=== PATIENT | female | born 1955 | race Caucasian/White ===

== ENCOUNTER 2017-02-23 13:15 | Observation (INO) | payer MEDICARE, OTHER ==
[2017-02-23] MEDS ORDERED: ONDANSETRON HCL/PF 4 MG/ 2ML VIAL IVP ONE (13:38)
[2017-02-23] MEDS ORDERED: 0.9 % SODIUM CHLORIDE 1,000 ML IV ONE (13:45)
[2017-02-23] MEDS ORDERED: 0.9 % SODIUM CHLORIDE 1,000 ML IV SCH (14:00)
--- NOTE | 2017-02-23 14:24 | ED Physician Documentation ---
Nausea/Vomiting/Diarrhea - HISTORIAN Historian: patient - HPI Stated Complaint: nausea and vomiting Chief Complaint: Nausea,Vomiting,Diarrhea Additional Information: x 1 week Onset: days ago (7) Duration: sudden-onset Last known Well Date: 02/16/17 Timing: sudden onset, still present Context: other (gandson with "stomach flu") Severity: moderate Further Comments: no - Associated Symptoms Vomiting: other (3-4x/day) Diarrhea: other (diarrhea first 3 days now moving bowels but formed) Abdominal Pain: cramping (first 3 days), mild, epigastric, other (no abd. pain for last 4 days) - ROS CONST: denies: fever, sweating CVS/RESP: denies: shortness of breath, cough, dry cough, non-productive cough GI/: other (denies hematemesis, melenotic stools or emesis). denies: constipation, black stools, bloody urine, bloody stools, dark urine, problems urinating EYES/ENT: none MS/SKIN/LYMPH: denies: joint pain, leg swelling, rash, swollen glands, ankle swelling NEURO/PSYCH: none - PAST HX Past History: other (hx of renal artery stenosis, hear murmur) Surgeries/Procedures: other (renal stenting) Immunizations: referred to PCP Allergies/Adverse Reactions: Allergies Allergy/AdvReac Type Severity Reaction Status Date / Time duloxetine HCl Allergy Verified 02/23/17 13:43 [From Cymbalta] Sulfa (Sulfonamide Allergy Verified 02/23/17 13:43 Antibiotics) Home Medications: Ambulatory Orders Medication Instructions Recorded Cyanocobalamin (Vitamin B-12) 2,000 mcg PO DAILY #60 u2 02/12/13 [B-12] Furosemide 20 mg PO DAILY PRN #90 u2 02/12/13 [place]-3 Fatty Acids/Fish Oil 1 each PO TID #90 av 02/12/13 [[place] 3 1,000 Mg Softgel] Potassium Chloride 10 meq PO DAILY u2 02/12/13 - SOCIAL HX Smoking History: cigarettes Alcohol Use: none Drug Use: none - FAMILY HX Family History: none - VITAL SIGNS Vital Signs: Vital Signs Temp Pulse Resp BP Pulse Ox 97.6 F 89 18 96/67 94 02/24/17 05:28 02/24/17 08:00 02/24/17 05:28 02/24/17 05:28 02/24/17 05:28 - REVIEWED ASSESSMENTS Nursing Assessment Reviewed: Yes Vitals Reviewed: Yes Progress - Results/Orders Results/Orders: cbc, cmp, ua, - Progress Progress: pt. given kcl 40 meq, 1 literr ns, 8 mg zofran, 12.5 mg phenergan and 1 vicodin 5/325 p.o. in er Critical Care Note - Critical Care Note Total Time (mins): 0 ED Results Lab/Radiology - Lab Results Lab Results: Lab Results 02/23/17 02/23/17 14:25 14:25 WBC 14.60 K/ul H K/ul (4.00-12.00) RBC 3.33 M/ul L M/ul (3.90-5.20) Hgb 12.4 g/dL g/dL (12.0-16.0) Hct 38.5 % % (34.5-46.5) MCV 115.7 fl H fl (80.0-100.0) MCH 37.2 pg H pg (28.0-34.0) MCHC 32.2 g/dL g/dL (30.0-36.0) RDW 18.6 % H % (11.3-14.3) Plt Count 253 K/mm3 K/mm3 (130-400) Neut % (Auto) 70.6 % % (39.0-79.0) Lymph % (Auto) 18.6 % % (16.0-50.0) [place] % (Auto) 8.1 % % (0.0-11.0) Eos % (Auto) 0.4 % % (0.0-6.8) Baso % (Auto) 0.4 (0.0-1.5) Neut # (Auto) 10.3 # k/uL H # k/uL (1.4-7.7) Lymph # (Auto) 2.7 # k/uL # k/uL (0.6-4.0) [place] # (Auto) 1.2 # k/uL H # k/uL (0.0-0.9) Eos # (Auto) 0.1 # k/uL # k/uL (0.0-0.6) Baso # (Auto) 0.0 # k/uL # k/uL (0.0-0.5) Reactive Lymphs % 1.9 % % (0.0-5.0) Reactive Lymphs # 0.3 # k/uL # k/uL (0.0-0.8) Sodium 135 mmol/L L mmol/L (137-145) Potassium 2.8 mmol/L L mmol/L (3.5-5.1) Chloride 101 mmol/L mmol/L (98-107) Carbon Dioxide 26 mmol/L mmol/L (22-30) BUN 26 mg/dL H mg/dL (7-17) Creatinine 0.80 mg/dL mg/dL (0.52-1.04) Estimated Creat Clear 108 Est GFR ( Amer) > 60 (60 - ) Est GFR (Non-Af Amer) > 60 (60 - ) Glucose 117 mg/dL H mg/dL (74-106) Calcium 8.7 mg/dL mg/dL (8.4-10.2) Total Bilirubin 0.8 mg/dL mg/dL (0.2-1.3) AST 14 U/L L U/L (15-46) ALT 14 U/L U/L (13-69) Alkaline Phosphatase 63 U/L U/L (38-126) Total Protein 7.2 g/dL g/dL (6.3-8.2) Albumin 4.1 g/dL g/dL (3.5-5.0) - Radiology Radiology Impressions: aas neg - Orders Orders: ED Orders Category Date Time Status Place IV Lock 1T Care 02/23/17 13:38 Completed AAS [ABD SERIES PA CHEST] [RAD] Stat Exams 02/23/17 Completed CBC/PLATELET/DIFF Routine Lab 02/23/17 14:25 Completed CMP Routine Lab 02/23/17 14:25 Completed 0.9 % Sodium Chloride [Normal Saline] 1,000 ml Med 02/23/17 14:00 Discontinued IV .Q1H 0.9 % Sodium Chloride [Sodium Chloride] 250 ml Med 02/23/17 14:52 Discontinued IV .STK-MED Aspirin Med 02/24/17 09:00 Ordered 325 mg PO DAILY HYDROcodone /APAP 10325 [[place] 10/325] Med 02/23/17 15:08 Discontinued 1 each PO NOW ONE Ondansetron HCl/Pf [Zofran 4 mg/2 ml] Med 02/23/17 13:38 Discontinued 8 mg IVP NOW ONE Potassium Chloride [Klor-Con M20] Med 02/23/17 14:51 Discontinued 40 meq .ROUTE .STK-MED ONE Potassium Chloride [Klor-Con M20] Med 02/23/17 14:51 Discontinued 40 meq PO NOW ONE Promethazine HCl [Phenergan] Med 02/23/17 14:51 Discontinued 25 mg .ROUTE .STK-MED ONE Promethazine HCl [Phenergan] 12.5 mg Med 02/23/17 14:50 Discontinued 0.9 % Sodium Chloride [Sodium Chloride] 250 ml IV NOW EKG WITH COMPARISON Urgent Ther 02/23/17 Stop Req Transfer Routine Transfer 02/23/17 Completed Nausea Physical Exam - EXAM General Appearance: alert, moderate distress EENT: eye inspection normal, ENT inspection normal, pharynx normal, DARIANA, no nystagmus, TM's nml, dry mucous membranes Neck: normal inspection, thyroid normal, supple Respiratory: no resp distress, chest non-tender, breath sounds normal CVS: reg rate & rhythm, heart sounds normal, equal pulses, no murmur, no gallop , PMI nml, no JVD Abdomen: non-tender, no organomegaly Back: non-tender, painless ROM Skin: warm/dry, normal color Extremities: non-tender, normal range of motion, no evidence of injury, no edema Neuro/Psych: oriented X3, CN's nml as tested, motor nml, sensation nml, mood/ affect nml, cognition normal Discharge Clincal Impression: Hypokalemia, Dehydration, Gastroenteritis Arrhythmia Qualifiers: Arrhythmia type: premature depolarization Premature depolarization type: ventricular Qualified Code(s): I49.3 - Ventricular premature depolarization Comments: Case discussed with Dr. Nguyen who accepts admission Condition: Stable Disposition: ADMITTED INPATIENT Decision to Admit: [id number] Decision Time: 17:15
[2017-02-23 14:30] LABS: BASOPHILS % 0.4 (0.0-1.5); EOSINOPHILS % 0.4 % (0.0-6.8); MEAN CORPUSCULAR HEMOGLOBIN 37.2 pg (28.0-34.0); MEAN CORPUSCULAR VOLUME 115.7 fl (80.0-100.0); MONOCYTES % 8.1 % (0.0-11.0); NEUTROPHILS # 10.3 # k/uL (1.4-7.7)
[2017-02-23 14:39] LABS: eGFR (African) > 60; eGFR (Non-African) > 60
[2017-02-23] MEDS ORDERED: PROMETHAZINE HCL IV ONE (14:50)
[2017-02-23] MEDS ORDERED: SODIUM CHLORIDE 0.9% IV ONE (14:50)
[2017-02-23] MEDS ORDERED: POTASSIUM CHLORIDE 20 MEQ TABLET.ER ONE (14:51)
[2017-02-23] MEDS ORDERED: PROMETHAZINE HCL 25 MG/ML VIAL ONE (14:51)
[2017-02-23] MEDS ORDERED: 0.9 % SODIUM CHLORIDE 250 ML IV ONE (14:52)
--- NOTE | 2017-02-23 15:05 | Diagnostic Imaging Report ---
KIKE MOORE [facility] [address] [facility] [address] Report Submission Date: Feb 23, 2017 2:17:59 PM CDT Patient Study Name: TEX MAGANA Date: Feb 23, 2017 1:41:58 PM CDT Modality Type: CR Gender: F Description: CHEST,ABDOMEN : 59 Institution: [facility] Physician: KIKE MOORE Examination: Obstruction series History: Vomiting Findings: 3 views obtained of the chest and abdomen. Single view the chest demonstrates normal cardiac silhouette. No focal infiltrative process and blunting of the costophrenic margins. No abnormal dilation of the large or small bowel. Air and stool throughout the large bowel. No suspicious calcification projecting over the renal fossa or the lower pelvic region. Osseous structures demonstrate lumbar degenerative changes and curvature to the left. Impression: No acute cardiopulmonary process. No obstruction. No suspicious calcifications by plain film sensitivity. Electronically signed on Feb 23, 2017 2:17:59 PM CDT by: Norbert BONILLA
[2017-02-23] MEDS ORDERED: HYDROcodone /APAP 10/325 1 EACH TABLET PO ONE (15:08)
[2017-02-23] MEDS: POTASSIUM CHLORIDE 20 MEQ TABLET.ER PO ONE ×2 (15:14→18:26)
[2017-02-23] MEDS ORDERED: POTASSIUM CHLORIDE 20 MEQ/NS 1,000 ML IV ONE (17:18)
[2017-02-23] MEDS: POTASSIUM CHLORIDE 20 MEQ/NS 1,000 ML IV SCH (17:30)
--- NOTE | 2017-02-23 17:36 | History and Physical Report ---
History of Present Illnes - History of Present Illness Reason for Visit: dehydration, hypokalemia History of Present Illness: [id number] white female who presented to the ED complaining of a seven day history of viral gastroenteritis type symptoms. Patient had been having some diarrhea and abdominal cramping associated with some nausea vomiting. Patient states she is been having a low-grade fever but no chills. Over the last several days the nausea vomiting and abdominal cramping seem to have improved that the patient states she was feeling worse. Patient subsequently came to the ED for evaluation. In ED patient was found to be dehydrated with some hypokalemia. Patient was subsequently admitted to the hospital for further care and evaluation and treatment of her hypokalemia. - Past Medical History Cardiac: HTN, Other (PVD) Pulmonary: Other (tobacco dependency) CIPHER EXPERT: CVA, TIA Heme/Onc: Anemia NOS, Other (Chronic myeloproliferative disorder,) - Past Surgical History Past Surgical History: Other (stenting of the L femoral artery) - Past Family History Mother Family History: DM, Father Family History: CAD, - Past Social History Smoke: # pack years (40), <1 pack per day (05/18 ppd) Alcohol: None Drugs: None Lives: With Family Domestic Violence: Negative - Health Maintenance Health Maintenance: Cholesterol, Influenza Vaccine, Pneumococcal Vaccine, Mammogram, Colonoscopy Influenza Vaccine: No Pneumonia Vaccine: Yes Resuscitation Status: Resusciation Status Resuscitation Status Full Code - Unable to Obtain History Unable to Obtain: No Review of Systems - Review of Systems Constitutional: Weakness. negative: Fever, Chills Eyes: negative: pain, vision change, conjunctivae inflammation ENT: negative: Ear Pain, Ear Discharge, Nose Pain, Nose Congestion, Mouth Pain, Mouth Swelling, Throat Pain, Throat Swelling Respiratory: SOB with Excertion (mild). negative: Cough, Shortness of Breath, Hemoptysis, Pleuritic Pain, Wheezing Cardiovascular: Light Headedness. negative: Chest Pain, Palpitations, Orthopnea , Paroxysmal Noc. Dyspnea, Edema Gastrointestinal: negative: Nausea, Vomiting, Abdominal Pain, Diarrhea, Constipation, Melena, Hematochezia Genitourinary: negative: Dysuria, Frequency, Incontinence Musculoskeletal: Neck Pain, Shoulder Pain, Arm Pain, Back Pain. negative: Leg Pain Skin: negative: Rash Neurological: Weakness. negative: Numbness, Incoordination, Change in Speech, Confusion, Seizures - Medications/Allergies Allergies/Adverse Reactions: Allergies Allergy/AdvReac Type Severity Reaction Status Date / Time duloxetine HCl Allergy Verified 02/23/17 13:43 [From Cymbalta] Sulfa (Sulfonamide Allergy Verified 02/23/17 13:43 Antibiotics) Current Inpatient Medications: Current Inpatient Medications Aspirin (Aspirin) 325 mg PO DAILY [facility] Buspirone HCl (Buspar) 10 mg PO BID [facility] Cyanocobalamin (Vitamin B-12) 2,000 mcg PO DAILY [facility] Fluoxetine HCl (Prozac) 40 mg PO DAILY [facility]ITH Gabapentin (Neurontin) 600 mg PO TID [facility] Potassium Chloride/Sodium Chloride (Potassium 20 Meq/Ns 1000 Ml) 1,000 mls @ 100 mls/hr IV Q10H [facility] Oxycodone/Acetaminophen (Percocet 5-325 Mg Tablet) 1 each PO Q4 [facility]ITH Potassium Chloride (Klor-Con 10) 20 meq PO BID [facility] Trazodone HCl (Desyrel) 50 mg PO HS LAITH Venlafaxine HCl (Effexor) 75 mg PO BID [facility]ITH Exam - Exam Vital Signs: Vital Signs (72 hours) 02/23/17 17:18 Pulse Rate [ 86 Pulse ox] Respiratory 20 Rate Blood Pressure 80/57 [Left Arm] General: Alert, Oriented to Person, Oriented to Place, Oriented to Time, Cooperative, Mild distress HEENT: Atraumatic, PERRLA, Nose Mucous membr. moist/[place], Edentulous, Hearing Grossly Normal. No: Mouth Mucous membr. moist/[place] (dry) Neck: Stridor, Rigidity, Normal Range of Motion. No: Lymphadenopathy Carotids: WNL Thyroid: WNL Lungs: Clear to auscultation, Normal air movement, Speaks full Sentences, Respiratory Distress. No: Wheezes, Rales, Rhonchi Cardiovascular: Regular rate, Normal S1, Normal S2, No murmurs. No: Gallops Abdomen: Normal bowel sounds, Soft, Other (tenderness over the ). No: Distended , Rigid Integumentary: Normal, [place], Warm, Dry Extremities: No clubbing, No cyanosis, Other (plus one edema- at baseline) Neurological: Normal gait, Normal speech, Strength Equal Bilat, Normal tone Psych/Mental Status: Mental status NL, Mood NL, Appropriate Affect, Intact Judgment Assessment/Plan - Assessment/Plan (1) Gastroenteritis Status: Acute Assessment: Clear liquids, IV fluids, Zofran PRN (2) Dehydration Status: Acute Assessment: IV fluids and recheck BMP in the AM (3) Hypokalemia Status: Acute Assessment: Supplemental K, recheck in AM, no EKG changes (4) PVD (peripheral vascular disease) Status: Acute Assessment: stable, will continue home meds (5) Neuropathy Status: Acute Assessment: stable, will continue home meds VTE Assessment - RISK FACTOR SCORE VTE RISK FACTOR SCORES: AGE OVER 60 YEARS, ANTICIPATED BED CONFINEMENT OR IMMOBILIZATION > 24 HOURS - RISK VTE MODERATE RISK: SCORE OF 2 (RISK PROXIMAL DVT 2-4%) PROPHYAXIS NEEDED
[2017-02-23] MEDS: BUSPIRONE HCL 5 MG TABLET PO SCH ×2 (17:46→21:17)
[2017-02-23] MEDS: traZODone HCL 50 MG TABLET PO SCH ×2 (17:47→21:18)
[2017-02-23] MEDS: GABAPENTIN 300 MG CAPSULE PO SCH ×2 (17:47→18:41)
[2017-02-23] MEDS ORDERED: 0.9 % SODIUM CHLORIDE 1,000 ML with POTASSIUM CHLORIDE 40 MEQ IV SCH ×2 (18:00)
[2017-02-23] MEDS ORDERED: ENOXAPARIN SODIUM 30 MG/0.3 ML DISP.SYRIN SQ SCH (18:00)
[2017-02-23] MEDS ORDERED: PANTOPRAZOLE SODIUM 40 MG in 0.9 % SODIUM CHLORIDE 50 ML IV SCH (18:00)
[2017-02-23] MEDS ORDERED: oxyCODONE/ACETAMINOPHEN 5/325 TABLET PO ONE ×2 (18:22→21:15)
[2017-02-23] MEDS: oxyCODONE/ACETAMINOPHEN 5/325 TABLET PO SCH ×2 (18:26→21:19)
[2017-02-23 18:36] VITALS: BMI 22.3
[2017-02-23] MEDS ORDERED: VENLAFAXINE HCL 37.5 MG CAP.ER.24H PO ONE (18:37)
[2017-02-23] MEDS ORDERED: ENOXAPARIN SODIUM 30 MG/0.3 ML DISP.SYRIN SQ ONE (18:37)
[2017-02-23] MEDS ORDERED: BUSPIRONE HCL 5 MG TABLET PO ONE (18:37)
[2017-02-23] MEDS ORDERED: GABAPENTIN 300 MG CAPSULE ONE (18:38)
[2017-02-23] MEDS ORDERED: traZODone HCL 50 MG TABLET ONE (18:38)
[2017-02-23] MEDS: POTASSIUM CHLORIDE 10 MEQ TABLET.ER PO SCH ×2 (19:14→21:24)
[2017-02-23] MEDS ORDERED: SALINE FLUSH 10 ML DISP.SYRIN IVF ONE (19:46)
[2017-02-23] MEDS ORDERED: 0.9 % SODIUM CHLORIDE 50 ML IV ONE (19:46)
[2017-02-23] MEDS ORDERED: PANTOPRAZOLE SODIUM INJ. 40 MG VIAL ONE (19:54)
[2017-02-23] MEDS: VENLAFAXINE HCL 37.5 MG TAB PO SCH (21:19)
[2017-02-23] MEDS ORDERED: POTASSIUM CHLORIDE 10 MEQ TABLET.ER PO ONE (21:24)
[2017-02-24] MEDS ORDERED: oxyCODONE/ACETAMINOPHEN 5/325 TABLET PO ONE ×3 (01:42→08:43)
[2017-02-24] MEDS: oxyCODONE/ACETAMINOPHEN 5/325 TABLET PO SCH ×3 (01:43→08:51)
[2017-02-24] MEDS ORDERED: POTASSIUM CHLORIDE 20 MEQ/NS 1,000 ML IV ONE (03:21)
[2017-02-24] MEDS: POTASSIUM CHLORIDE 20 MEQ/NS 1,000 ML IV SCH (03:27)
[2017-02-24] MEDS ORDERED: POTASSIUM CHLORIDE 10 MEQ TABLET.ER PO ONE (05:34)
[2017-02-24] MEDS ORDERED: ASPIRIN 325 MG TABLET ONE (05:34)
[2017-02-24] MEDS ORDERED: CYANOCOBALAMIN 1,000 MCG TABLET PO ONE (05:34)
[2017-02-24] MEDS ORDERED: VENLAFAXINE HCL 37.5 MG CAP.ER.24H PO ONE (05:34)
[2017-02-24] MEDS ORDERED: BUSPIRONE HCL 5 MG TABLET PO ONE (05:34)
[2017-02-24] MEDS ORDERED: GABAPENTIN 300 MG CAPSULE ONE (05:35)
[2017-02-24] MEDS ORDERED: FLUoxetine HCL 10 MG CAPSULE PO ONE (05:35)
[2017-02-24] MEDS: BUSPIRONE HCL 5 MG TABLET PO SCH (08:52)
[2017-02-24] MEDS: GABAPENTIN 300 MG CAPSULE PO SCH (08:53)
[2017-02-24] MEDS: VENLAFAXINE HCL 37.5 MG TAB PO SCH (08:53)
[2017-02-24] MEDS: POTASSIUM CHLORIDE 10 MEQ TABLET.ER PO SCH (08:53)
[2017-02-24] MEDS ORDERED: ASPIRIN 325 MG TABLET PO SCH (09:00)
[2017-02-24] MEDS ORDERED: FLUoxetine HCL 10 MG CAPSULE PO SCH (09:00)
[2017-02-24] MEDS ORDERED: CYANOCOBALAMIN 1,000 MCG TABLET PO SCH (09:00)
[2017-02-24 09:49] LABS: BASOPHILS % 0.5 (0.0-1.5); EOSINOPHILS % 2.7 % (0.0-6.8); MEAN CORPUSCULAR HEMOGLOBIN 36.9 pg (28.0-34.0); MEAN CORPUSCULAR VOLUME 117.3 fl (80.0-100.0); NEUTROPHILS # 6.7 # k/uL (1.4-7.7)
[2017-02-24 10:15] LABS: eGFR (African) > 60; eGFR (Non-African) > 60
[2017-02-24 11:02] VITALS: BP 84/58
--- NOTE | 2017-03-04 11:37 | Discharge Summary ---
Discharge Summary - Discharge Sumary History of Present Illness: Fabia-ffel-jur white female who presented to the ED complaining of a seven day history of viral gastroenteritis type symptoms. Patient had been having some diarrhea and abdominal cramping associated with some nausea vomiting. Patient states she is been having a low-grade fever but no chills. Over the last several days the nausea vomiting and abdominal cramping seem to have improved that the patient states she was feeling worse. Patient subsequently came to the ED for evaluation. In ED patient was found to be dehydrated with some hypokalemia. Patient was subsequently admitted to the hospital for further care and evaluation and treatment of her hypokalemia. Condition at Discharge: Stable Home Medications: Ambulatory Orders Medication Instructions Recorded Cyanocobalamin (Vitamin B-12) 2,000 mcg PO DAILY #60 u2 02/12/13 [B-12] Furosemide 20 mg PO DAILY PRN #90 u2 02/12/13 [place]-3 Fatty Acids/Fish Oil 1 each PO TID #90 av 02/12/13 [[place] 3 1,000 mg Softgel] Potassium Chloride 10 meq PO DAILY u2 02/12/13 Consultations this Visit: None Procedures this Visit: None Allergies/Adverse Reactions: Allergies Allergy/AdvReac Type Severity Reaction Status Date / Time duloxetine HCl Allergy Verified 02/23/17 13:43 [From Cymbalta] Sulfa (Sulfonamide Allergy Verified 02/23/17 13:43 Antibiotics) Discharge Summary: Patient was started on IV fluids with supplemental potassium. Once patient started to tolerate oral intake better she was started on po potassium supplement also. She tolerated this well. Potassium was rechecked and was found to be improved to 4.0. BUN improved from 26 to 18 and creatinine remained stable. Patient did not have any further vomiting once admitted. Cardiac status was monitored and frequency of PVCs decreased. At the time of dismissal patient was doing much better. She was tolerating oral food/fluids well. She was discharged in stable condition.
== END 2017-02-24 11:20 | disposition home or self-care (01) ==
LOC: ED 13:15 → SOUTH 16:55 → INTOOBSV 16:55 → UNDOADMIN 16:55
PROVIDERS: ADMIT Family Medicine; ATTEND Family Medicine
DX: E87.6 Hypokalemia (principal); E86.0 Dehydration
CPT/HCPCS: 36415; 74022; 80053; 85025; 93005; A9270; G0378; J1650; J2405; J2550; J3480; J7030; J7050; 96361; 96374; 96375; 96376; 99283; 99284; S1016

== ENCOUNTER 2017-04-11 12:58 | Outpatient (CLI) | payer MEDICARE, OTHER | END 2017-04-11 13:00 | LOC: CARD 12:58 | PROVIDERS: ATTEND Internal Medicine Cardiovascular Disease | DX: R07.9 Chest pain, unspecified (principal); I35.0 Nonrheumatic aortic (valve) stenosis; I73.9 Peripheral vascular disease, unspecified; I25.10 Atherosclerotic heart disease of native coronary artery without angina pectoris; Z86.73 Personal history of transient ischemic attack (TIA), and cerebral infarction without residual deficits; R01.1 Cardiac murmur, unspecified; I10 Essential (primary) hypertension; E78.5 Hyperlipidemia, unspecified; Z72.0 Tobacco use | CPT/HCPCS: G0463 ==

== ENCOUNTER 2017-05-28 17:56 | Emergency (ER) | payer MEDICARE, OTHER ==
--- NOTE | 2017-05-28 18:02 | ED Physician Documentation ---
General Adult - HISTORIAN Historian: patient - HPI Stated Complaint: nasuea vomiting diarrhea - stated gallstones Chief Complaint: Nausea,Vomiting,Diarrhea Onset: other (7) Timing: still present, worse Severity: moderate Further Comments: yes (She states almost two months ago she was here for the same symptoms and she was admitted and she was dx with gallstones. She has been seeing a specialist and has some mild symptoms on and off. She states about one week ago she started with N/V/D and the symptoms are progressively increasing with pain. She thinks her next specialist appt is early Jun. She denies a fever. ) Last known Well Code/Unknown Code: Unknown - ROS CONST: no problems CVS/RESP: denies: shortness of breath GI/: abdominal pain, vomiting, nausea MS/SKIN/LYMPH: none NEURO/PSYCH: denies: headache - PAST HX Past History: other (Vascular disease neuropathy ) Other History: none Surgeries/Procedures: other (Stent in left leg ) Immunizations: UTD Allergies/Adverse Reactions: Allergies Allergy/AdvReac Type Severity Reaction Status Date / Time Sulfa (Sulfonamide Allergy Severe Anaphylaxis Verified 05/28/17 18:42 Antibiotics) duloxetine HCl Allergy Verified 05/28/17 18:42 [From Cymbalta] Home Medications: Ambulatory Orders Medication Instructions Recorded Cyanocobalamin (Vitamin B-12) 2,000 mcg PO DAILY #60 u2 02/12/13 [B-12] Furosemide 20 mg PO DAILY PRN #90 u2 02/12/13 [place]-3 Fatty Acids/Fish Oil 1 each PO TID #90 av 02/12/13 [[place] 3 1,000 mg Softgel] Potassium Chloride 10 meq PO DAILY u2 02/12/13 - SOCIAL HX Smoking History: cigarettes Alcohol Use: none Drug Use: none - FAMILY HX Family History: No - VITAL SIGNS Vital Signs: Vital Signs Temp Pulse Resp BP Pulse Ox 84/58 02/24/17 10:00 - REVIEWED ASSESSMENTS Nursing Assessment Reviewed: Yes Vitals Reviewed: Yes Progress - Progress Progress: 1904: Nausea is improved and pain is slightly better. DG 2039: mild nausea no pain DG ED Results Lab/Radiology - Radiology Radiology Impressions: CT abdomen and pelvis without contrast History: Abdominal pain, nausea, vomiting, diarrhea Technique: Images through abdomen and pelvis were obtained without contrast. Findings: The lung bases, liver, gallbladder, pancreas, kidneys and right adrenal gland are grossly normal on this noncontrast examination. There is mild left adrenal enlargement. Spleen is absent. There is no hydronephrosis, hydroureter or renal calculus. No free air or fluid is present. There is no bowel obstruction. There are a few colonic diverticula. The appendix is not identified with confidence. There is calcification in the abdominal aorta and its branches. Impression: No acute abnormality. Aortic atherosclerosis. Electronically signed on May 28, 2017 7:17:54 PM CLIMATE CHANGE ANALYST by: Law Mora General Adult Physical Exam - PHYSICAL EXAM GENERAL APPEARANCE: mild distress EENT: eye inspection normal NECK: normal inspection RESPIRATORY: no resp distress, chest non-tender, breath sounds normal CVS: equal pulses, no murmur, other (irregular ) ABDOMEN: soft, tenderness (entire abdomen . more on RUQ ), abnormal bowel sounds (hypoactive ), guarding SKIN: warm/dry, normal color EXTREMITIES: non-tender, normal range of motion, no evidence of injury, no edema NEURO: oriented X3, CN's nml as tested, motor nml, sensation nml, mood/affect nml Discharge Clincal Impression: Nausea & vomiting Qualifiers: Vomiting type: unspecified Vomiting Intractability: unspecified Qualified Code( s): R11.2 - Nausea with vomiting, unspecified Referrals: Toni Nguyen MD [Primary Care Provider] - 2 Days Comments: zofran as needed for nausea Follow up with PCP return for any concern in symptoms \ Fluids [place] diet as tolerated. DG Condition: Stable Disposition: 01 HOME, SELF-CARE Decision to Admit: NO Date of Decison to Admit: 05/28/17 Decision Time: 20:41
[2017-05-28] MEDS ORDERED: ONDANSETRON HCL/PF 4 MG/ 2ML VIAL IVP ONE (18:17)
[2017-05-28] MEDS ORDERED: fentaNYL CITRATE/PF 100 MCG/ 2ML AMP IVP ONE (18:17)
[2017-05-28] MEDS ORDERED: 0.9 % SODIUM CHLORIDE 1,000 ML IV ONE (18:18)
[2017-05-28 18:46] LABS: BASOPHILS % 0.4 (0.0-1.5); EOSINOPHILS % 2.7 % (0.0-6.8); MEAN CORPUSCULAR HEMOGLOBIN 34.1 pg (28.0-34.0); MEAN CORPUSCULAR VOLUME 106.3 fl (80.0-100.0); MONOCYTES % 6.8 % (0.0-11.0); NEUTROPHILS # 5.5 # k/uL (1.4-7.7)
[2017-05-28 19:05] LABS: eGFR (African) > 60; eGFR (Non-African) > 60
--- NOTE | 2017-05-28 19:20 | Diagnostic Imaging Report ---
[facility] [address] [facility] [address] [place], [place]. [address] Report Submission Date: May 28, 2017 7:17:54 PM ART COORDINATOR Patient Study Name: TEX MAGANA Date: May 28, 2017 6:52:08 PM ART COORDINATOR Modality Type: CT\SR Gender: F Description: CT ABD & PELVIS W/O CO : 59 Institution: [facility] Physician: ROSENDA LEON CT abdomen and pelvis without contrast History: Abdominal pain, nausea, vomiting, diarrhea Technique: Images through abdomen and pelvis were obtained without contrast. Findings: The lung bases, liver, gallbladder, pancreas, kidneys and right adrenal gland are grossly normal on this noncontrast examination. There is mild left adrenal enlargement. Spleen is absent. There is no hydronephrosis, hydroureter or renal calculus. No free air or fluid is present. There is no bowel obstruction. There are a few colonic diverticula. The appendix is not identified with confidence. There is calcification in the abdominal aorta and its branches. Impression: No acute abnormality. Aortic atherosclerosis. Electronically signed on May 28, 2017 7:17:54 PM ART COORDINATOR by: Law BONILLA
[2017-05-28] MEDS ORDERED: ONDANSETRON HCL 4 MG TAB.RAPDIS PO ONE (20:42)
[2017-05-28 22:36] VITALS: BP 151/93
[2017-05-29 07:04] LABS: APPEARANCE,URINE CLEAR (CLEAR); COLOR,URINE YELLOW (YELLOW)
[2017-05-29 07:05] LABS: OCCULT BLOOD,URINE NEGATIVE (NEGATIVE); UROBILINOGEN URINE 0.2 Eu (0.2-1.0)
== END 2017-05-28 21:03 | disposition home or self-care (01) ==
LOC: ED 17:56
DX: R11.2 Nausea with vomiting, unspecified (principal)
CPT/HCPCS: 74176; 80053; 81002; 85025; 96365; 96375; 99283; J2405; J3010; J7030; S1016

== ENCOUNTER 2017-10-09 16:24 | Observation (INO) | payer MEDICARE, OTHER ==
[2017-10-09] MEDS ORDERED: 0.9 % SODIUM CHLORIDE 1,000 ML IV ONE ×2 (16:53→16:54)
[2017-10-09] MEDS ORDERED: NITROGLYCERIN 0.4 MG TAB.SUBL SL ONE ×3 (16:53→17:08)
--- NOTE | 2017-10-09 16:57 | ED Physician Documentation ---
Chest Pain - HISTORIAN Historian: patient - HPI Chief Complaint: Chest Pain Timing: worse Duration: other (intermittent) Last known Well Date: 10/09/17 Last Known Well Time: 12:00 Context: other (walking at [employer]) Severity: moderate Quality: sharp Chest Pain Radiation: shoulders (left) Chest Pain Signs/Symptoms: nausea, dyspnea. denies: vomiting Worsened By: nothing Relieved By: nothing Further Comments: yes (62 year female patient presents with complaint of intermittent chest pain since 1400. Patient states she was walking around at [employer] when she began having CP. Reports radiation to left shoulder, dyspnea and nausea. Rates CP 11/21 at presents.) - ROS CONST: recent illness (States she had a CT of head, chest and abdomen last at [facility]. Does not know results. ) MS/LYMPH: ankle swelling ("I always have that") GI/: nausea. 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; ) Allergies/Adverse Reactions: Allergies Allergy/AdvReac Type Severity Reaction Status Date / Time Sulfa (Sulfonamide Allergy Severe Anaphylaxis Verified 10/09/17 16:44 Antibiotics) duloxetine HCl Allergy Verified 10/09/17 16:44 [From Cymbalta] Home Medications: Ambulatory Orders Medication Instructions Recorded Cyanocobalamin (Vitamin B-12) 2,000 mcg PO DAILY #60 u2 02/12/13 [B-12] Furosemide 20 mg PO DAILY PRN #90 u2 02/12/13 [place]-3 Fatty Acids/Fish Oil 1 each PO TID #90 av 02/12/13 [[place] 3 1,000 mg Softgel] Potassium Chloride 10 meq PO DAILY u2 02/12/13 - SOCIAL HX Smoking History: cigarettes - FAMILY HX Family HX: CAD over 55 (father) - VITAL SIGNS Vital Signs: Vital Signs Temp Pulse Resp BP Pulse Ox 83 151/93 94 10/09/17 16:50 05/28/17 22:32 10/09/17 16:50 - REVIEWED ASSESSMENTS Nursing Assessment Reviewed: Yes Vitals Reviewed: Yes Progress - Progress Progress: Chest down to 2/10 after 1 Nitro. K 3.6 - will give additional Potassium due to ectopy. Patient requesting pain medication for neuropathy pain. 1730 Discussed treatment options and plan of care with patient and . Offered admission for rule out or transfer to cardiology. Patient and prefer admit to [facility]. Explained we would transfer to if next troponin was positive or chest pain continues. Verbalized understanding. Call to Timmy Liriano - agrees to observation admission. - EKG/XRAY/CT EKG: rhythm (SR, rate 84, multi-focal PVC. ) ED Results Lab/Radiology - Radiology Radiology Impressions: Examination: Portable chest History: Evaluate lungs. PCXR, CHEST PAIN THIS AFTERNOON (Hx) Comparison exam: None available for direct review. Findings: Single view of the chest demonstrates a normal cardiac and mediastinal silhouette. Diffuse interstitial prominence. No blunting of the costophrenic margins. Osseous structures are appropriate for age. Impression: Interstitial prominence suggesting a component of increased volume status. No effusion. Electronically signed on October 09, 2017 5:23:20 PM CDT by: Norbert Colin - Orders Orders: ED Orders Category Date Time Status Continuous EKG monitoring Q30M Care 10/09/17 16:50 Ordered Continuous Pulse Oximetry Q30M Care 10/09/17 16:50 Ordered CBC/PLATELET/DIFF Stat Lab 10/09/17 16:49 Ordered CMP Stat Lab 10/09/17 16:50 Ordered TROPONIN I (cTnI) Stat Lab 10/09/17 16:50 Ordered UA W/MICRO IF INDICATED Stat Lab 10/09/17 16:50 Ordered 0.9 % Sodium Chloride [Normal Saline] 1,000 ml Med 10/09/17 16:53 Ordered IV NOW Nitroglycerin [Nitroquick] Med 10/09/17 16:53 Once 0.4 mg SL NOW ONE Oxygen Daily Oxygen 10/09/17 17:00 Ordered EKG WITH COMPARISON Stat Ther 10/09/17 16:51 Ordered Chest Pain Physical Exam - EXAM General Appearance: mild distress EENT: eye inspection normal, ENT inspection normal, pharynx normal, no signs of dehydration, DARIANA, no nystagmus, TM's nml Respiratory: no resp. distress, nml breath sounds CVS: reg. 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
[2017-10-09 17:01] LABS: BASOPHILS % 0.3 (0.0-1.5); EOSINOPHILS % 2.4 % (0.0-6.8); MEAN CORPUSCULAR HEMOGLOBIN 31.9 pg (28.0-34.0); MEAN CORPUSCULAR VOLUME 104.1 fl (80.0-100.0); MONOCYTES % 6.4 % (0.0-11.0); NEUTROPHILS # 4.7 # k/uL (1.4-7.7)
[2017-10-09] MEDS ORDERED: ASPIRIN 81 MG CHEW TAB PO ONE (17:07)
[2017-10-09] MEDS ORDERED: ASPIRIN 81 MG CHEW TAB ONE (17:08)
[2017-10-09 17:09] LABS: eGFR (African) > 60; eGFR (Non-African) > 60
[2017-10-09] MEDS ORDERED: POTASSIUM CHLORIDE 20 MEQ TABLET.ER PO ONE (17:10)
[2017-10-09] MEDS ORDERED: MAGNESIUM SULFATE 2 GM in DEXTROSE 5 % IN WATER 100 ML IV STA ×2 (17:37)
[2017-10-09] MEDS ORDERED: MAGNESIUM SULFATE/D5W 100 ML IV ONE (17:38)
[2017-10-09] MEDS: BUSPIRONE HCL 5 MG TABLET PO SCH ×2 (19:00→20:36)
[2017-10-09] MEDS: APIXABAN 2.5 MG TABLET PO SCH ×2 (19:01→20:37)
[2017-10-09] MEDS: VARENICLINE TARTRATE 1 MG PO SCH (19:02)
[2017-10-09] MEDS: oxyCODONE/ACETAMINOPHEN 5/325 TABLET PO PRN (19:12)
[2017-10-09] MEDS: CILOSTAZOL 100 MG PO SCH (20:05)
[2017-10-09] MEDS ORDERED: VENLAFAXINE HCL 37.5 MG CAP.ER.24H PO ONE (20:30)
[2017-10-09] MEDS: VENLAFAXINE HCL 37.5 MG TAB PO SCH (20:36)
[2017-10-09] MEDS: traZODone HCL 50 MG TABLET PO SCH ×2 (20:36→20:41)
[2017-10-09 20:37] VITALS: BMI 21.9
[2017-10-09] MEDS: GABAPENTIN 300 MG CAPSULE PO SCH (20:37)
[2017-10-09] MEDS ORDERED: TRAZODONE HCL 150 MG PO SCH (21:00)
[2017-10-09] MEDS ORDERED: GABAPENTIN 600 MG PO SCH (21:00)
[2017-10-10] MEDS: oxyCODONE/ACETAMINOPHEN 5/325 TABLET PO PRN ×2 (01:27→07:36)
[2017-10-10] MEDS ORDERED: VENLAFAXINE HCL 37.5 MG CAP.ER.24H PO ONE (01:31)
--- NOTE | 2017-10-10 06:11 | Diagnostic Imaging Report ---
ABBEY LEGER (EMPLOYMENT SPECIALIST) - ER [facility] [address] [address] Report Submission Date: October 09, 2017 5:23:20 PM CDT Patient Study Name: TEX MAGANA Date: October 09, 2017 5:02:06 PM CDT Modality Type: DX Gender: F Description: CHEST : 59 Institution: [facility] Physician: ABBEY LEGER (EMPLOYMENT SPECIALIST) - ER Examination: Portable chest History: Evaluate lungs. PCXR, CHEST PAIN THIS AFTERNOON (Hx) Comparison exam: None available for direct review. Findings: Single view of the chest demonstrates a normal cardiac and mediastinal silhouette. Diffuse interstitial prominence. No blunting of the costophrenic margins. Osseous structures are appropriate for age. Impression: Interstitial prominence suggesting a component of increased volume status. No effusion. Electronically signed on October 09, 2017 5:23:20 PM CDT by: Norbert BONILLA
[2017-10-10 06:25] LABS: eGFR (African) > 60; eGFR (Non-African) > 60
[2017-10-10 07:34] LABS: APPEARANCE,URINE CLEAR (CLEAR); COLOR,URINE YELLOW (YELLOW); OCCULT BLOOD,URINE NEGATIVE (NEGATIVE); UROBILINOGEN URINE 0.2 Eu (0.2-1.0)
--- NOTE | 2017-10-10 08:07 | Inpatient Progress Note ---
Subjective - Required Recertification Statement I anticipate X number of days because-include discharge plan: 1 - Review of Systems Events since last encounter: Christin states her chest pain is better today. She notes still having pain occasionally that does radiate to her left shoulder. Chest pain started last night when she was shopping in [employer] and was persistent and radiating to her left shoulder. She states pain resolved in the ER with her second dose of Nitro. She was admitted for serial troponins which were negative. She notes a significant cardiac history and see Dr. Oscar, but states it has been about 6 months since her last visit with him. She also notes a history of DVT and PE and is on daily Eliquis. She denies any recent heavy lifting or increase in exercise. She states her chest is not sore to touch. She is a current every day smoker and is not interested in quitting. She states she is feeling well otherwise and denies any other concerns today. Per Nursing she has been trying to sneak out to have a cigarette but does not want a patch. General: Fatigue (Mild and notes a history of FLORENCIO Hgb was 10.9 on admission labs - does not like oral supplementation due to GI upset) HEENT: Denies: Sinus Congestion, Sore Throat Pulmonary: Denies: Dyspnea, Cough Cardiovascular: Chest Pain (now intermittent left sided chest pain with radiation to left shoulder), Edema (mild lower extremity - she states this is her baseline) Gastrointestinal: Denies: Nausea, Vomiting, Abdominal Pain Musculoskeletal: Other (Patient denies any chest wall tenderness). Denies: Shoulder Pain, Leg Pain Objective - Exam Vitals and I&O: Vital Signs Temp 98.5 F 10/10/17 06:00 Pulse 78 10/10/17 07:51 Resp 18 10/10/17 06:00 BP 123/90 10/10/17 06:00 Pulse Ox 96 10/10/17 06:00 Intake & Output 10/09/17 10/09/17 10/10/17 11:59 23:59 11:59 Intake Total 610 250 Balance 610 250 Weight 67.585 kg Intake: Oral 610 250 Other: Voiding Method Toilet Toilet # Voids 1 General: Alert, Oriented to Person, Oriented to Place, Oriented to Time, Cooperative, No acute distress, Average Body Habits HEENT: Atraumatic, EOMI, Mouth Mucous membr. moist/[place], Hearing Grossly Normal Neck: Supple Lungs: Clear to auscultation, Normal air movement, Speaks full Sentences. No: Wheezes, Rales, Rhonchi Cardiovascular: Regular rate, Normal S1, Normal S2, No murmurs Abdomen: Soft, No tenderness Extremities: Other (no lower extremity tenderness to palpation). No: No edema ( mild lower extremity edema) Skin: Normal, [place], Warm, Dry Neurological: Normal gait, Normal speech, Sensation intact Psych/Mental Status: Mental status NL, Mood NL, Appropriate Affect - Results Results: Laboratory Results WBC 10.10 K/ul (4.00-12.00) 10/09/17 16:55 RBC 3.42 M/ul (3.90-5.20) L 10/09/17 16:55 Hgb 10.9 g/dL (12.0-16.0) L 10/09/17 16:55 Hct 35.6 % (34.5-46.5) 10/09/17 16:55 MCV 104.1 fl (80.0-100.0) H 10/09/17 16:55 MCH 31.9 pg (28.0-34.0) 10/09/17 16:55 MCHC 30.7 g/dL (30.0-36.0) 10/09/17 16:55 RDW 17.8 % (11.3-14.3) H 10/09/17 16:55 Plt Count 429 K/mm3 (130-400) H 10/09/17 16:55 Neut % (Auto) 46.2 % (39.0-79.0) 10/09/17 16:55 Lymph % (Auto) 42.0 % (16.0-50.0) 10/09/17 16:55 [place] % (Auto) 6.4 % (0.0-11.0) 10/09/17 16:55 Eos % (Auto) 2.4 % (0.0-6.8) 10/09/17 16:55 Baso % (Auto) 0.3 (0.0-1.5) 10/09/17 16:55 Neut # (Auto) 4.7 # k/uL (1.4-7.7) 10/09/17 16:55 Lymph # (Auto) 4.3 # k/uL (0.6-4.0) H 10/09/17 16:55 [place] # (Auto) 0.6 # k/uL (0.0-0.9) 10/09/17 16:55 Eos # (Auto) 0.2 # k/uL (0.0-0.6) 10/09/17 16:55 Baso # (Auto) 0.0 # k/uL (0.0-0.5) 10/09/17 16:55 Reactive Lymphs % 2.6 % (0.0-5.0) 10/09/17 16:55 Reactive Lymphs # 0.3 # k/uL (0.0-0.8) 10/09/17 16:55 Sodium 142 mmol/L (136-145) 10/10/17 05:15 Potassium 3.8 mmol/L (3.5-5.1) 10/10/17 05:15 Chloride 111 mmol/L (98-107) H 10/10/17 05:15 Carbon Dioxide 25 mmol/L (22-30) 10/10/17 05:15 BUN 10 mg/dL (7-17) 10/10/17 05:15 Creatinine 0.60 mg/dL (0.52-1.04) 10/10/17 05:15 Estimated Creat Clear 125 10/10/17 05:15 Est GFR ( Amer) > 60 (60-) 10/10/17 05:15 Est GFR (Non-Af Amer) > 60 (60-) 10/10/17 05:15 Glucose 107 mg/dL (74-106) H 10/10/17 05:15 Calcium 8.3 mg/dL (8.4-10.2) L 10/10/17 05:15 Total Bilirubin 0.1 mg/dL (0.2-1.3) L 10/09/17 16:50 AST 12 U/L (15-46) L 10/09/17 16:50 ALT 18 U/L (13-69) 10/09/17 16:50 Alkaline Phosphatase 63 U/L (38-126) 10/09/17 16:50 Creatine Kinase 35 U/L (30-135) 10/10/17 05:15 CK-MB (CK-2) 1.0 ng/mL (0.0-5.6) 10/10/17 05:00 Troponin I < 0.03 ng/mL (0.03-0.06) L 10/10/17 05:00 Total Protein 6.5 g/dL (6.3-8.2) 10/09/17 16:50 Albumin 3.5 g/dL (3.5-5.0) 10/09/17 16:50 Urine Color Yellow (YELLOW) 10/09/17 17:25 Urine Appearance Clear (CLEAR) 10/09/17 17:25 Urine pH 7.0 (5.0 - 8.0) 10/09/17 17:25 Ur Specific [place] 1.010 (1.010-1.030) 10/09/17 17:25 Urine Protein Negative mg/dL (NEGATIVE) 10/09/17 17:25 Urine Ketones Negative mg/dL (NEGATIVE) 10/09/17 17:25 Urine Occult Blood Negative (NEGATIVE) 10/09/17 17:25 Urine Nitrite Negative (NEGATIVE) 10/09/17 17:25 Urine Bilirubin Negative (NEGATIVE) 10/09/17 17:25 Urine Urobilinogen 0.2 Eu (0.2-1.0) 10/09/17 17:25 Ur Leukocyte Esterase Negative (NEGATIVE) 10/09/17 17:25 Urine Glucose Negative mg/dL (NEGATIVE) 10/09/17 17:25 Assessment/Plan - Assessment/Plan (1) Chest pain Status: Acute Current Visit: Yes Qualifiers: Chest pain type: unspecified Qualified Code(s): R07.9 - Chest pain, unspecified Assessment: Chest pain has improved but is still occurring intermittently. Patient's left lateral chest wall is moderately tender. Troponins are negative. Plan: Will have Dr. Oscar see patient prior to discharge, due to patient's history. Patient will follow up with Dr. Oscar and Dr. Nguyen as outpatient. (2) Ruled out for myocardial infarction Status: Acute Current Visit: Yes
[2017-10-10] MEDS: BUSPIRONE HCL 5 MG TABLET PO SCH (08:50)
[2017-10-10] MEDS: CILOSTAZOL 100 MG PO SCH (08:50)
[2017-10-10] MEDS: VENLAFAXINE HCL 37.5 MG TAB PO SCH (08:51)
[2017-10-10] MEDS: APIXABAN 2.5 MG TABLET PO SCH (08:51)
[2017-10-10] MEDS: GABAPENTIN 300 MG CAPSULE PO SCH (08:52)
[2017-10-10] MEDS: VARENICLINE TARTRATE 1 MG PO SCH (08:53)
[2017-10-10] MEDS ORDERED: NIFEDIPINE 30 MG PO SCH (09:00)
[2017-10-10] MEDS ORDERED: ASPIRIN 325 MG TABLET PO SCH (09:00)
[2017-10-10] MEDS ORDERED: FLUoxetine HCL 10 MG CAPSULE PO SCH (09:00)
[2017-10-10] MEDS ORDERED: FLUOXETINE HCL 40 MG PO SCH (09:00)
[2017-10-10] MEDS ORDERED: POTASSIUM CHLORIDE 10 MEQ TABLET.ER PO SCH (09:00)
[2017-10-10] MEDS ORDERED: FUROSEMIDE 20 MG TABLET PO SCH (09:00)
--- NOTE | 2017-10-10 09:56 | Discharge Summary ---
Discharge Summary - Discharge Sumary History of Present Illness: 62 year old female presented to the ER yesterday evening for left sided chest pain that radiated to her left shoulder. Chest pain subsided with 2 doses of Nitro given in the ER. She notes pain continues intermittently now but is not as bad as it was initially. She was admitted to observation for serial troponins which were negative and EKG remained unremarkable. On exam she was found to have some left sided chest wall tenderness which may be related to a musculoskeletal injury. 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 Additional Instructions: Appointment scheduled with Dr. Oscar on 10/17/2017 at 10: 00am. Follow up with Dr. Nguyen in the next week. Condition at Discharge: Stable Home Medications: Ambulatory Orders Medication Instructions Recorded Cyanocobalamin (Vitamin B-12) 2,000 mcg PO DAILY #60 u2 02/12/13 [B-12] Furosemide 20 mg PO DAILY PRN #90 u2 02/12/13 [place]-3 Fatty Acids/Fish Oil 1 each PO TID #90 av 02/12/13 [[place] 3 1,000 mg Softgel] Potassium Chloride 10 meq PO DAILY u2 02/12/13 Consultations this Visit: None Procedures this Visit: None Allergies/Adverse Reactions: Allergies Allergy/AdvReac Type Severity Reaction Status Date / Time Sulfa (Sulfonamide Allergy Severe Anaphylaxis Verified 10/09/17 16:44 Antibiotics) duloxetine HCl Allergy Verified 10/09/17 16:44 [From Cymbalta] - Final Diagnosis (1) Chest pain Right or Left: Left
[2017-10-10 10:27] VITALS: BP 123/88
[2017-10-10 11:17] LABS: BASOPHILS % 0.4 (0.0-1.5); EOSINOPHILS % 1.8 % (0.0-6.8); MEAN CORPUSCULAR HEMOGLOBIN 31.9 pg (28.0-34.0); MEAN CORPUSCULAR VOLUME 105.5 fl (80.0-100.0); MONOCYTES % 4.7 % (0.0-11.0); NEUTROPHILS # 5.9 # k/uL (1.4-7.7)
== END 2017-10-10 11:15 | disposition home or self-care (01) ==
LOC: ED 16:24 → SOUTH 17:42 → INTOOBSV 17:42
PROVIDERS: ADMIT Physician Assistant; ATTEND Physician Assistant
DX: R07.9 Chest pain, unspecified (principal)
CPT/HCPCS: 36415; 71045; 80048; 80053; 81002; 82550; 82553; 84484; 85025; 93005; 96365; 96366; 99284; A9270; G0378; J3475; J7030; 99217; 99219; G0379; S1016

== ENCOUNTER 2018-03-02 11:50 | Outpatient (CLI) | payer MEDICARE, MEDICAID ==
[2018-03-02 13:20] LABS: eGFR (Non-African) > 60
== END 2018-03-02 11:52 ==
LOC: LAB 11:50
PROVIDERS: ATTEND Family Medicine
DX: E87.1 Hypo-osmolality and hyponatremia (principal)
CPT/HCPCS: 36415; 80048

== ENCOUNTER 2018-06-07 11:48 | Outpatient (CLI) | payer MEDICARE, OTHER ==
[2018-06-07 13:34] LABS: eGFR (Non-African) > 60
[2018-06-07 14:28] LABS: MEAN CORPUSCULAR HEMOGLOBIN 33.7 pg (28.0-34.0)
[2018-06-07 14:29] LABS: ANISOCYTOSIS 3+ (NEGATIVE); BASOPHILS % 1 % (0-2); MONOCYTES % 8 % (0-11); SEGMENTED NEUTROPHILS % 55 % (39-79)
[2018-06-07 14:30] LABS: OVALOCYTES 1+ (NEGATIVE); TARGET CELLS 1+ (NEGATIVE)
== END 2018-06-07 11:50 ==
LOC: LAB 11:48
PROVIDERS: ATTEND Physician Assistant
DX: L40.0 Psoriasis vulgaris (principal); Z79.899 Other long term (current) drug therapy
CPT/HCPCS: 36415; 80053; 85025; 86703; 86803; 87340

== ENCOUNTER 2018-07-16 19:27 | Emergency (ER) | payer MEDICARE, OTHER ==
--- NOTE | 2018-07-16 19:48 | ED Physician Documentation ---
General Adult - HISTORIAN Historian: patient - HPI Stated Complaint: R foot injury Chief Complaint: General Adult Onset: hours Timing: still present Severity: moderate Further Comments: yes (Pt is a 63 yo female who struck her R foot on the leg of a table. Pt has pain in R foot digits 3, 4, 5. Pt has neuropathy and chronic pain and is on oxycodone and gabapentin for this.) - ROS CONST: no problems EYES/ENT: none CVS/RESP: none GI/: none MS/SKIN/LYMPH: other (R foot pain) NEURO/PSYCH: other (neuropathy, chronic) - PAST HX Past History: other (Anxiety, neuropathy, chronic pain, HTN, stents) Allergies/Adverse Reactions: Allergies Allergy/AdvReac Type Severity Reaction Status Date / Time Sulfa (Sulfonamide Allergy Severe Anaphylaxis Verified 10/09/17 16:44 Antibiotics) duloxetine HCl Allergy Verified 07/16/18 20:09 [From Cymbalta] Home Medications: Ambulatory Orders Medication Instructions Recorded Cyanocobalamin (Vitamin B-12) 2,000 mcg PO DAILY #60 u2 02/12/13 [B-12] Furosemide 20 mg PO DAILY PRN #90 u2 02/12/13 [place]-3 Fatty Acids/Fish Oil 1 each PO TID #90 av 02/12/13 [[place] 3 1,000 mg Softgel] Potassium Chloride 10 meq PO DAILY u2 02/12/13 - SOCIAL HX Smoking History: cigarettes - FAMILY HX Family History: No - VITAL SIGNS Vital Signs: Vital Signs Temp Pulse Resp BP Pulse Ox 123/88 10/10/17 10:00 - REVIEWED ASSESSMENTS Nursing Assessment Reviewed: Yes Vitals Reviewed: Yes Progress - Progress Progress: Percocet (5/325) 2 tablets po in Er. X-ray R foot: fracture not seen Post-op shoe Rx [place] (5/325) 1-2 po q 4-6h prn #15 General Adult Physical Exam - PHYSICAL EXAM GENERAL APPEARANCE: moderate distress NECK: normal inspection, supple RESPIRATORY: no resp distress, chest non-tender, breath sounds normal CVS: reg rate & rhythm, heart sounds normal, equal pulses BACK: normal inspection, no CVA tenderness SKIN: warm/dry, normal color EXTREMITIES: tenderness (lateral R foot) NEURO: oriented X3, motor nml, sensation nml Discharge Clincal Impression: R foot injury, chronic neuropathic pain Referrals: Toni Nguyen MD [Primary Care Provider] - Condition: Stable Disposition: 01 HOME, SELF-CARE Decision to Admit: NO Decision Time: 20:58
[2018-07-16] MEDS ORDERED: oxyCODONE/ACETAMINOPHEN 5/325 TABLET PO ONE (19:58)
[2018-07-16 22:39] VITALS: BP 108/74
--- NOTE | 2018-07-17 06:38 | Diagnostic Imaging Report ---
PRISCILLA ONEAL [facility] [address] [facility] [address] Report Submission Date: Jul 16, 2018 8:35:29 PM RECOATER Patient Study Name: TEX MAGANA Date: Jul 16, 2018 8:12:59 PM RECOATER Modality Type: DX Gender: F Description: FOOT 3 VIEWS OR MORE : 59 Institution: [facility] Physician: PRISCILLA ONEAL Right foot three views History: Toe pain after blunt trauma Findings: The right foot is intact without fracture, dislocation, arthropathy, or focal bone lesion. Electronically signed on Jul 16, 2018 8:35:29 PM RECOATER by: Nikolas BONILLA
== END 2018-07-16 21:15 | disposition home or self-care (01) ==
LOC: ED 19:27
DX: S99.921A Unspecified injury of right foot, initial encounter (principal); M79.2 Neuralgia and neuritis, unspecified; W22.03XA Walked into furniture, initial encounter; Y93.9 Activity, unspecified; Y92.9 Unspecified place or not applicable
CPT/HCPCS: 29515; 73630; 99283; A9270

== ENCOUNTER 2018-12-01 21:56 | Observation (INO) | payer MEDICARE, OTHER ==
--- NOTE | 2018-12-01 22:20 | ED Physician Documentation ---
Dizziness - HISTORIAN Historian: patient - HPI Stated Complaint: dizzy Chief Complaint: Dizziness Additional Information: Patient presents to ED with dizziness since 1400 today. She states she was watching TV when she first noticed the dizziness. Patient states she was dizzy most of the day. At 830 this evening she took her blood pressure and she reports a blood pressure of 60/40. She takes nifedipine and lasix for blood p ressure. She is also on Buspar, effexor, gabapentin, trazodone, oxycodone and chantix. Patient was on Florinef 0.1mg daily for adrenal insufficiency for over a year. Patient was taken off this medication about 2 months ago. Timing: gradual onset Duration: intermittent episodes Severity: moderate Associated Symptoms: other (blurry vision). denies: nausea, vomiting Usually: walks w/o assistance Worsened By: changing position - ROS CONST: denies: recent illness EYES/ENT: problems with vision (isolated episode blurry vision) GI/: denies: abdominal pain MS/SKIN/LYMPH: none NEURO/PSYCH: none CVS/RESP: denies: chest pain, shortness of breath - PAST HX Past History: hypertension, other (PVD s/p bilateral LE stents) Cardiac Disease: none Surgeries/Procedures: other (bilateral lowere extremity stents) Allergies/Adverse Reactions: Allergies Allergy/AdvReac Type Severity Reaction Status Date / Time duloxetine HCl Allergy Severe Hallucinati Verified 12/01/18 22:23 [From Cymbalta] ons Sulfa (Sulfonamide Allergy Severe Anaphylaxis Verified 12/01/18 22:23 Antibiotics) Home Medications: Ambulatory Orders Medication Instructions Recorded Cyanocobalamin (Vitamin B-12) 2,000 mcg PO DAILY #60 u2 02/12/13 [B-12] Furosemide 20 mg PO DAILY PRN #90 u2 02/12/13 [place]-3 Fatty Acids/Fish Oil 1 each PO TID #90 av 02/12/13 [[place] 3 1,000 mg Softgel] Potassium Chloride 10 meq PO DAILY u2 02/12/13 - SOCIAL HX Smoking History: cigarettes, less than 1 pack/day Alcohol Use: none Drug Use: none - FAMILY HX Family History: none - VITAL SIGNS Vital Signs: Vital Signs Temp Pulse Resp BP Pulse Ox 108/74 07/16/18 22:35 - REVIEWED ASSESSMENTS Nursing Assessment Reviewed: Yes Vitals Reviewed: Yes Progress - Progress Progress: 2320 Discussed with Linda Weekly, PAN DEVULCANIZER HELPER for admission. Will admit as observation. 2330 Patient ambulated to restroom without issues. Reports the last time she had problems with adrenal insufficiency she ended up on a ventilator in the ICU. She reports that was 3-4 months ago. - EKG/XRAY/CT EKG: NSR Comments: 2215 NSR 82 bpm, no ST elevation ED Results Lab/Radiology - Radiology Radiology Impressions: Report Submission Date: Dec 01, 2018 10:45:52 PM CDT Patient Study Name: TEX MAGANA Date: Dec 01, 2018 10:18:37 PM CDT Modality Type: DX Gender: F Description: CHEST 2VIEW : 59 Institution: [facility] Physician: BOONE VARGAS PA and lateral chest Clinical history: Dizziness. Findings: Examination of the chest in PA and lateral views with comparison to examination of 10/09/2017 demonstrates lungs to be hyperinflated. Cardiac silhouette is prominent and the aorta is atherosclerotic. There are increased interstitial markings throughout the lungs that appear chronic. There is no coalescent infiltrate. Impression: 1. Hyperinflation. 2. Chronic appearing interstitial changes. 3. Cardiomegaly and aortic atherosclerosis. Electronically signed on Dec 01, 2018 10:45:52 PM CDT by: Abebe Dewey Physical Exam - Physical Exam General Appearance: no distress EENT: DARIANA Neck: normal inspection, supple Respiratory: no respiratory distress, decreased air movement CVS: reg rate & rhythm, heart sounds normal Abdomen: soft, normal bowel sounds, no distension, non-tender Skin: warm/dry, normal color Neuro: nml orientation, nml speech, nml cognition, mood/affect nml Extremities: non-tender, no evidence of injury, no edema Cranial: nml as tested, no evidence of acute CVA Cerebellar: nml as tested Sensorimotor: motor nml, sensation nml Discharge Clincal Impression: History of adrenal insufficiency Hypotension Qualifiers: Hypotension type: unspecified hypotension type Qualified Code(s): I95.9 - Hypotension, unspecified Referrals: Toni Nguyen MD [Primary Care Provider] - 2 Days Comments: Will admit observation for hypotension with history of adrenal insufficiency. Solucortef 100mg IV given in ED. Will need to restart Florinef 0.1mg daily. Condition: Stable Decision to Admit: NO Date of Decison to Admit: 12/01/18 Decision Time: 23:21
[2018-12-01] MEDS ORDERED: 0.9 % SODIUM CHLORIDE 1,000 ML IV ONE (22:21)
--- NOTE | 2018-12-01 22:47 | Diagnostic Imaging Report ---
BOONE VARGAS [facility] [address] [facility] [address] [place], [place]. [address] Report Submission Date: Dec 01, 2018 10:45:52 PM CDT Patient Study Name: TEX MAGANA Date: Dec 01, 2018 10:18:37 PM CDT Modality Type: DX Gender: F Description: CHEST 2VIEW : 59 Institution: [facility] Physician: BOONE VARGAS PA and lateral chest Clinical history: Dizziness. Findings: Examination of the chest in PA and lateral views with comparison to examination of 10/09/2017 demonstrates lungs to be hyperinflated. Cardiac silhouette is prominent and the aorta is atherosclerotic. There are increased interstitial markings throughout the lungs that appear chronic. There is no coalescent infiltrate. Impression: 1. Hyperinflation. 2. Chronic appearing interstitial changes. 3. Cardiomegaly and aortic atherosclerosis. Electronically signed on Dec 01, 2018 10:45:52 PM CDT by: Abebe BONILLA
[2018-12-01 23:01] LABS: SEGMENTED NEUTROPHILS % 50 % (39-79)
[2018-12-01 23:02] LABS: eGFR (Non-African) > 60
[2018-12-01] MEDS ORDERED: HYDROCORTISONE SODIUM SUCCINATE IV ONE (23:13)
[2018-12-02 00:25] VITALS: BMI 23.4
[2018-12-02] MEDS ORDERED: GABAPENTIN 600 MG PO SCH (00:30)
[2018-12-02] MEDS: 0.9 % SODIUM CHLORIDE 1,000 ML IV SCH ×2 (00:54→04:23)
--- NOTE | 2018-12-02 06:46 | Inpatient Progress Note ---
Subjective - Required Recertification Statement I anticipate X number of days because-include discharge plan: 0 - Review of Systems Events since last encounter: Patient is feeling much better this morning- she would like to go home- will repeat lab work and evaluate for discharge- she agrees with plan requesting pain med for her pVD- states that she takes a percocet at home. She denies any n/v/d. Denies any chest pain or shortness of breath. She feels much better and is ready to go home. General: Denies: Chills HEENT: Denies: Head Aches Pulmonary: Denies: Dyspnea Cardiovascular: Denies: Chest Pain, Light Headedness Gastrointestinal: Denies: Nausea, Vomiting, Abdominal Pain Genitourinary: Denies: Dysuria Musculoskeletal: Leg Pain (bilateral leg pain d/t Peripheral Neuropathy) Neurological: Denies: Weakness Objective - Exam Vitals and I&O: Vital Signs Temp 97.8 F 12/02/18 05:38 Pulse 78 12/02/18 05:53 Resp 16 12/02/18 05:53 BP 93/67 12/02/18 05:53 Pulse Ox 92 12/02/18 05:41 Intake & Output 12/01/18 12/01/18 12/02/18 11:59 23:59 11:59 Intake Total 1200 Balance 1200 Weight 72.575 kg 69.853 kg Intake: IV 1200 Left Hand 600 Right Wrist 600 Other: Voiding Method Toilet General: Alert, Oriented to Person, Oriented to Place, Oriented to Time, C ooperative, No acute distress HEENT: Atraumatic, PERRLA, Mouth Mucous membr. moist/[place], Nose Mucous membr. moist/[place] Neck: Supple, No JVD, +2 carotid pulse wo bruit Lungs: Clear to auscultation, Normal air movement Cardiovascular: Regular rate, Normal S1, Normal S2 Abdomen: Normal bowel sounds, Soft Extremities: No edema, Normal pulses, No tenderness/swelling Skin: Normal, [place], Warm, Dry Neurological: Normal gait, Normal speech, Strength Equal Bilat, Sensation intact Psych/Mental Status: Mental status NL, Mood NL, Appropriate Affect, Intact Judgment - Results Results: Laboratory Results WBC 14.80 K/ul (4.00-12.00) H 12/01/18 22:40 RBC 2.42 M/ul (3.90-5.20) L 07/20/19 22:40 Hgb 9.2 g/dL (11.5-16.0) L 12/01/18 22:40 Hct 26.5 % (34.5-46.5) L 12/01/18 22:40 MCV 110.0 fl (80.0-100.0) H 12/01/18 22:40 MCH 38.0 pg (28.0-34.0) H 12/01/18 22:40 MCHC 34.6 g/dL (30.0-36.0) 12/01/18 22:40 RDW 19.0 % (11.3-14.3) H 12/01/18 22:40 Seg Neutrophils % 50 % (39-79) 12/01/18 22:40 Lymphocytes % 45 % (16-50) 12/01/18 22:40 Monocytes % 3 % (0-11) 12/01/18 22:40 Eosinophils % 2 % (0-7) 12/01/18 22:40 Sodium 137 mmol/L (137-145) 12/01/18 22:40 Potassium 3.7 mmol/L (3.5-5.1) 12/01/18 22:40 Chloride 105 mmol/L (98-107) 12/01/18 22:40 Carbon Dioxide 27 mmol/L (22-30) 12/01/18 22:40 Anion Gap 8.7 mmol/L (3-11) 12/01/18 22:40 BUN 8 mg/dL (7-17) 12/01/18 22:40 Creatinine 0.63 mg/dL (0.52-1.04) 12/01/18 22:40 Estimated Creat Clear 126 12/01/18 22:40 Est GFR ( Amer) > 60 (60-) 12/01/18 22:40 Est GFR (Non-Af Amer) > 60 (60-) 12/01/18 22:40 Glucose 110 mg/dL (74-106) H 12/01/18 22:40 Calcium 8.2 mg/dL (8.4-10.2) L 12/01/18 22:40 Total Bilirubin 0.2 mg/dL (0.2-1.3) 12/01/18 22:40 AST 46 U/L (15-46) 12/01/18 22:40 ALT 11 U/L (13-69) L 12/01/18 22:40 Alkaline Phosphatase 53 U/L (38-126) 12/01/18 22:40 Troponin I 0.026 ng/mL (0.012-0.034) 12/01/18 22:40 NT-Pro-B Natriuret Pep 418.5 pg/mL (11.1-125.0) H 12/01/18 22:40 Total Protein 6.4 g/dL (6.3-8.2) 12/01/18 22:40 Albumin 3.6 g/dL (3.5-5.0) 12/01/18 22:40 Assessment/Plan - Assessment/Plan (1) Hypotension Status: Acute Qualifiers: Hypotension type: unspecified hypotension type Qualified Code(s): I95.9 - Hypotension, unspecified Assessment: Blood pressure has improved- stable Plan: Will continue to monitor (2) PVD (peripheral vascular disease) Status: Acute Assessment: Patient c/o bilateral lower leg pain due to peripheral vascular disease Plan: Percocet ordered
[2018-12-02] MEDS ORDERED: busPIRone HCL 5 MG TABLET PO ONE (07:57)
[2018-12-02] MEDS ORDERED: APIXABAN 5 MG TABLET PO ONE (07:57)
[2018-12-02] MEDS ORDERED: VENLAFAXINE HCL 37.5 MG CAP.ER.24H PO ONE (07:57)
[2018-12-02] MEDS ORDERED: ASPIRIN 325 MG TABLET ONE (07:58)
[2018-12-02 08:10] LABS: SEGMENTED NEUTROPHILS % 71 % (39-79)
[2018-12-02 08:11] LABS: eGFR (Non-African) > 60
[2018-12-02] MEDS ORDERED: ASPIRIN 325 MG TABLET PO SCH (09:00)
[2018-12-02] MEDS ORDERED: CILOSTAZOL 100 MG PO SCH (09:00)
[2018-12-02] MEDS ORDERED: APIXABAN 5 MG TABLET PO SCH (09:00)
[2018-12-02] MEDS ORDERED: VENLAFAXINE HCL 75 MG PO SCH (09:00)
[2018-12-02] MEDS ORDERED: HYDROCORTISONE SODIUM SUCCINATE IV SCH (09:00)
[2018-12-02] MEDS ORDERED: BUSPIRONE HCL 10 MG PO SCH (09:00)
--- NOTE | 2018-12-02 09:52 | Discharge Summary ---
Discharge Summary - Discharge [facility] Admission Date: 12/01/18 Discharge Date: 12/02/18 Discharge To: Home History of Present Illness: Patient presents to ED with dizziness since 1400 today. She states she was watching TV when she first noticed the dizziness. Patient states she was dizzy most of the day. At 830 this evening she took her blood pressure and she reports a blood pressure of 60/40. She takes nifedipine and lasix for blood pressure. She is also on Buspar, effexor, gabapentin, trazodone, oxycodone and chantix. Patient was on Florinef 0.1mg daily for adrenal insufficiency for over a year. Patient was taken off this medication about 2 months ago. Condition at Discharge: Stable Home Medications: Ambulatory Orders Medication Instructions Recorded Cyanocobalamin (Vitamin B-12) 2,000 mcg PO DAILY #60 u2 02/12/13 [B-12] Furosemide 20 mg PO DAILY PRN #90 u2 02/12/13 [place]-3 Fatty Acids/Fish Oil 1 each PO TID #90 av 02/12/13 [[place] 3 1,000 mg Softgel] Potassium Chloride 10 meq PO DAILY u2 02/12/13 Fludrocortisone Acetate [Florinef] 0.1 mg PO DAILY #30 tablet 12/02/18 Consultations this Visit: None Procedures this Visit: None Allergies/Adverse Reactions: Allergies Allergy/AdvReac Type Severity Reaction Status Date / Time duloxetine HCl Allergy Severe Hallucinati Verified 12/01/18 22:23 [From Cymbalta] ons Sulfa (Sulfonamide Allergy Severe Anaphylaxis Verified 12/01/18 22:23 Antibiotics) Discharge Summary: Patient was admitted observation to monitor blood pressure and dizziness. She received IV fluids, Solu Cortef and is feeling much better this morning. She is pushing to go home. Will start patient on Florinef- and she is to follow up with PCP this week for re-evaluation. Hospital Course: IVF, IV solu cortef - Final Diagnosis (1) History of adrenal insufficiency Problems: Corrected- start back on florinef Right or Left: Right (2) Hypotension Problems: Corrected- blood pressure stable Right or Left: Right
[2018-12-02 11:53] VITALS: BP 93/67
== END 2018-12-02 11:25 | disposition home or self-care (01) ==
LOC: ED 21:56 → INTOOBSV 23:58 → SOUTH 23:58
PROVIDERS: ADMIT Nurse Practitioner Family; ATTEND Nurse Practitioner Family
DX: I95.9 Hypotension, unspecified (principal); Z86.39 Personal history of other endocrine, nutritional and metabolic disease
CPT/HCPCS: 36415; 71046; 80053; 83880; 84484; 85025; 93005; 96374; 99283; 99284; A9270; G0379; J7030; G0378; S1016